=== PATIENT | male | born 1990 | race Caucasian/White ===

== ENCOUNTER 2023-02-03 12:39 | Inpatient (IN) | payer OTHER ==
[~2023-02-03] VITALS: Ht 177.8 cm; Wt 86.7 kg
[2023-02-03] MEDS ORDERED: LEXA1TAB PO (12:54)
[2023-02-03] MEDS ORDERED: HYDR50TA70 PO (12:55)
[2023-02-03 13:26] LABS: HEMATOCRIT 46.1 % (42.0-52.0); HEMOGLOBIN 16.1 g/dl (13.5-17.5); MEAN CORPUSCULAR HEMOGLOBIN 30.7 pg (27.0-33.0); MEAN CORPUSCULAR HGB CONC 34.9 g/dl (32.0-36.5); PLATELET COUNT, AUTOMATED 279 10^3/uL (150-450); RED BLOOD COUNT 5.24 10^6/uL (4.30-6.10); WHITE BLOOD COUNT 7.9 10^3/uL (4.0-10.0)
[2023-02-03 13:54] LABS: CANNABINOIDS URINE NEGATIVE (NEGATIVE); METHADONE URINE NEGATIVE (NEGATIVE); OPIATES URINE NEGATIVE (NEGATIVE); PHENCYCLIDINE URINE NEGATIVE (NEGATIVE)
[2023-02-03 13:55] LABS: AMPHETAMINES LEVEL URINE NEGATIVE (NEGATIVE); BARBITURATES URINE NEGATIVE (NEGATIVE); BENZODIAZEPINES URINE NEGATIVE (NEGATIVE); ETHYL ALCOHOL (ETHANOL) < 0.003 % (0.000-0.010)
[2023-02-03 13:56] LABS: SALICYLATE LEVEL < 3.0 MG/DL (<30)
[2023-02-03 13:57] LABS: ALBUMIN 4.5 G/DL (3.2-5.2); ALKALINE PHOSPHATASE 76 U/L (46-116); ALT/SGPT 30 U/L (7.0-40); AST/SGOT 29 U/L (<34); BILIRUBIN,DIRECT 0.3 MG/DL (<0.4); BILIRUBIN,TOTAL 0.8 MG/DL (0.3-1.2); BLOOD UREA NITROGEN 19 MG/DL (9-23); CALCIUM LEVEL 9.7 MG/DL (8.5-10.1); CARBON DIOXIDE LEVEL 27 MMOL/L (20-31); CHLORIDE LEVEL 105 MMOL/L (98-107); GLOMERULAR FILTRATION RATE > 60.0 (>60); GLUCOSE, FASTING 83 MG/DL (60-100); POTASSIUM SERUM 4.5 MMOL/L (3.5-5.1); SODIUM LEVEL 142 MMOL/L (136-145)
[2023-02-03 13:59] LABS: THYROID STIMULATING HORMONE 2.762 uIU/ML (0.55-4.78)
[2023-02-03] MEDS ORDERED: HYDR-3363 PO (14:00)
[2023-02-03] MEDS ORDERED: HOME MED LIST COMPLETE! XX SCH (14:05)
[2023-02-03 14:14] LABS: COCAINE METABOLITE URINE POSITIVE (NEGATIVE)
[2023-02-03] MEDS ORDERED: IBUPROFEN 400MG TAB PO PRN (15:45)
[2023-02-03] MEDS ORDERED: ACETAMINOPHEN TAB 650MG DOSE (2X325MG) PO PRN (15:45)
[2023-02-03] MEDS ORDERED: OLANZapine ORAL DISINTEGRATING TAB 5MG PO PRN (15:45)
[2023-02-03] MEDS ORDERED: MAALOX 30 ML SUSP *UDC PO PRN (15:45)
[2023-02-03] MEDS ORDERED: MOM 30ML SUSPENSION UDC PO PRN (15:45)
[2023-02-03] MEDS ORDERED: OLANZapine ORAL DISINTEGRATING TAB 5MG PO ONE (17:05)
[2023-02-03 18:01] VITALS: BP 127/76; TEMP 97.5; O2SAT 100
[2023-02-03] MEDS: diphenhydrAMINE 25MG CAP PO PRN (19:30)
[2023-02-03] MEDS: traZODone 50 MG TAB PO PRN (19:30)
[2023-02-03] MEDS ORDERED: HALOPERIDOL 5MG/ML 1ML VIAL IM STA (19:55)
[2023-02-03] MEDS ORDERED: LORazepam 2 MG/ML 1ML VIAL IM STA (19:55)
[2023-02-04] MEDS: NICOTINE 14 MG/24 HR TRANSDERMAL TD SCH (14:24)
[2023-02-04 19:24] VITALS: BP 131/63; TEMP 97.6; O2SAT 100
[2023-02-04] MEDS: traZODone 50 MG TAB PO PRN (20:16)
[2023-02-05 05:01] VITALS: BP 109/67; TEMP 97.8; O2SAT 100
[2023-02-05] MEDS: NICOTINE 14 MG/24 HR TRANSDERMAL TD SCH ×2 (09:00→09:15)
[2023-02-05] MEDS: ESCITALOPRAM OXALATE 5MG TABLET (LEXAPRO) PO SCH (15:05)
[2023-02-05 18:24] VITALS: BP_SYST 132; BP_SYST 169; BP_DIAS 87; BP_DIAS 98; TEMP 98.8; O2SAT 98
[2023-02-05] MEDS: traZODone 50 MG TAB PO PRN (19:53)
[2023-02-05] MEDS: diphenhydrAMINE 25MG CAP PO PRN (21:26)
[2023-02-06] MEDS ORDERED: traZODone 50 MG TAB PO ONE (01:00)
[2023-02-06 06:28] VITALS: BP 123/72; TEMP 98.5; O2SAT 99
[2023-02-06] MEDS: ESCITALOPRAM OXALATE 5MG TABLET (LEXAPRO) PO SCH (08:18)
[2023-02-06] MEDS: NICOTINE 14 MG/24 HR TRANSDERMAL TD SCH ×2 (08:19→12:24)
[2023-02-06 16:15] VITALS: BP 128/65; TEMP 97.7; O2SAT 100
[2023-02-06] MEDS: traZODone 50 MG TAB PO PRN (21:50)
[2023-02-07 06:25] VITALS: BP 133/80; TEMP 97.9; O2SAT 100
[2023-02-07] MEDS ORDERED: ESCITALOPRAM OXALATE 10 MG TAB (LEXAPRO) PO SCH (09:00)
== END 2023-02-07 07:02 | DRG 885 ==
LOC: M ED 15:38 → M ED INP 15:45 → M PSY 17:39
PROVIDERS: ADMIT Student in an Organized Health Care Education/Training Program; ATTEND Student in an Organized Health Care Education/Training Program
DX: F31.2 Bipolar disorder, current episode manic severe with psychotic features (principal); R45.851 Suicidal ideations; F14.151 Cocaine abuse with cocaine-induced psychotic disorder with hallucinations; F14.122 Cocaine abuse with intoxication with perceptual disturbance; F32.A Depression, unspecified; F43.10 Post-traumatic stress disorder, unspecified; F10.10 Alcohol abuse, uncomplicated; Z20.822 Contact with and (suspected) exposure to COVID-19; Z79.899 Other long term (current) drug therapy; Z63.5 Disruption of family by separation and divorce; Z91.82 Personal history of military deployment